=== PATIENT | male | born 1985 | race Hispanic/Latino ===

== ENCOUNTER 2022-06-13 07:45 | Emergency (ER) | payer OTHER | END 2022-06-13 08:45 | disposition home or self-care (01) | LOC: BURERS 07:45 | DX: S60.211A Contusion of right wrist, initial encounter (principal); S39.012A Strain of muscle, fascia and tendon of lower back, initial encounter; F17.210 Nicotine dependence, cigarettes, uncomplicated; V89.2XXA Person injured in unspecified motor-vehicle accident, traffic, initial encounter | CPT/HCPCS: 71046; 72100; 72170; G0390 ==